=== PATIENT | female | born 1990 | race Caucasian/White ===

== ENCOUNTER → 2017-01-23 | Outpatient (CLI) | payer MEDICAID ==
[~2017-01-23] MED LIST: ADALAT CC60 MG PO; MECLIZINE HCL25 MG PO; NORCO 5-325 TA1 EACH PO; PRENATAL GUMMI1 EACH PO; VALTREX500 MG PO
== END | disposition disaster alternative care site (69) ==
LOC: GRAD 07:30
DX: M54.2 Cervicalgia (principal); M50.222 Other cervical disc displacement at C5-C6 level; M48.02 Spinal stenosis, cervical region; M51.86 Other intervertebral disc disorders, lumbar region; M79.1 Myalgia; M53.86 Other specified dorsopathies, lumbar region; R29.898 Other symptoms and signs involving the musculoskeletal system

== ENCOUNTER → 2017-03-01 | Outpatient (CLI) | payer MEDICAID | END | disposition disaster alternative care site (69) | LOC: GRAD 10:02 | DX: G35 Multiple sclerosis (principal); M79.1 Myalgia; M54.2 Cervicalgia; G93.89 Other specified disorders of brain; R20.2 Paresthesia of skin; R29.898 Other symptoms and signs involving the musculoskeletal system; R42 Dizziness and giddiness | CPT/HCPCS: A9577 ==

== ENCOUNTER 2017-03-08 07:02 | Day surgery (SDC) | payer MEDICAID ==
[~2017-03-08] VITALS: Ht 157.5 cm; Wt 68.5 kg
--- NOTE | ~2017-03-08 | HP ---
PATIENT'S NAME: YAYA BANGURA [facility] AGE: 26 Y [address] ROOM: [place] [address] LOCATION: [facility] [place] ADMIT DATE: 03/08/2017 History & Physical DISCHARGE DATE: 03/09/2017 FAMILY PHYSICIAN: Dana Pink ATTENDING PHYSICIAN: Yanet Obregon DATE OF SERVICE: 03/18/2017 PATIENT IDENTIFICATION: Yaya Bangura is a 26-year-old female. PRESENTING COMPLAINT: Neck and left arm pain. HISTORY OF PRESENT ILLNESS: The patient's symptoms have been ongoing for over 2 years. The patient stated that she was having limited attention span, confusion, short-term memory loss, but the main problem was neck pain and numbness and tingling in the left arm. She also had weakness in her hands, in the left arm, and in the left leg. MRI scan showed herniated disk at C5-C6 level. Surgery was therefore recommended. PAST MEDICAL HISTORY: Significant for major depressive illness including a suicide attempt with excessive alcohol and Zoloft overdose on the record. Other medical problems include suspicion for multiple sclerosis for which MRI brain and spinal taps were performed and were negative. The patient has also lost a significant amount of weight. REVIEW OF SYSTEMS: A 10-point review of systems was carried out. The only abnormal findings are as described in the history of present illness. CURRENT MEDICATIONS: Please see chart. ALLERGIES: PLEASE SEE CHART. SOCIAL HISTORY: The patient is a smoker. PHYSICAL EXAMINATION: GENERAL: The patient is a healthy-looking female who was not in any distress PATIENT'S NAME: YAYA BANGURA [facility] AGE: 26 Y [address] ROOM: [place] [address] LOCATION: [facility] [place] ADMIT DATE: 03/08/2017 History & Physical DISCHARGE DATE: 03/09/2017 FAMILY PHYSICIAN: Dana Pink ATTENDING PHYSICIAN: Yanet Obregon when I saw her. VITAL SIGNS: Stable. NEUROLOGIC EXAMINATION: Speech is intact. Cranial nerves, no deficits seen. Motor Examination: The patient has decreased strength in her left biceps compared to the right biceps. She also has increased reflexes in all her extremities. CARDIOVASCULAR SYSTEM: Heart sounds present. RESPIRATORY SYSTEM: The patient is not short of breath at the bedside. EXTREMITIES: No cyanosis or clubbing. SKIN: No skin rashes or skin masses. REVIEW OF IMAGING STUDIES: The patient had a cervical spine MRI done. The MRI showed a chronic left posterior disk herniation increased from previous surgery. There was migrating disk extrusion which could be a free fragment which extended 5 mm inferior from the disk level and measured 4.5 mm in diameter. There was compression of the left ventral cord surface. ASSESSMENT: A 26-year-old female with 2 year history of neck and left arm pain and weakness. MRI scan shows a left C5-6 disk herniation with increased size compared to 2014. There is a strong correlation between the patient's clinical features and radiological findings. The duration of her symptoms has been long enough for spontaneous resolution to happen and it has not. Accordingly, surgery has been recommended. Surgery recommended is a C5-6 cervical diskectomy and fusion to be performed on March 08, 2017. The patient was seen in the preop clinic right before the surgery, symptoms were unchanged. MD JOVANA ORLANDO/shavonne /[id number] D: [id number] T: 822 HISTORY & PHYSICAL
--- NOTE | ~2017-03-08 | OR ---
PATIENT'S NAME: YAYA BANGURA [facility] AGE: 26 Y [address] [place]: [facility] [place], [place] [address] LOCATION: [facility] ADMIT DATE: 03/08/2017 OR/Procedure Report DISCHARGE DATE: 03/09/2017 FAMILY PHYSICIAN: Dana Pink ATTENDING PHYSICIAN: Yanet Obregon SURGEON: Yanet Obregon MD BAG SORTER: Jeanette Peña. DATE OF PROCEDURE: 03/08/2017 PREOPERATIVE DIAGNOSIS: Cervical spondylosis with radiculopathy. POSTOPERATIVE DIAGNOSIS: Cervical spondylosis with radiculopathy. PROCEDURES PERFORMED: 1. Anterior cervical diskectomy with decompression of neural elements and foraminotomy at C5-6. 2. Structural autograft fusion with iliac crest bone graft from the patient's right hip at C5-C6. 3. Use of Keddie plate by Mk. 4. Use of operative microscope. ANESTHESIA: General. ANESTHESIA PROVIDER: Tomas Fenton MD HISTORY: The patient is a 26-year-old female who presented with left arm pain and weakness and neck pain. MRI scans showed herniated disk at C5-C6. The patient had begun to have left arm weakness and had had symptoms for more than 2 years. Surgery was, therefore, recommended. The above procedure along with the benefits and risks were discussed with the patient. With her consent, she was taken to the operating room for surgery. PROCEDURE IN DETAIL: In the operating room, the patient was placed in the supine position. Anesthesia was induced. She was intubated. Her neck was supported on a gel donut, and a roll was placed under her shoulders, keeping her neck in slight extension. The incision lines were marked out along the anterior border of the right sternomastoid muscle as well as over the right iliac crest. These incision areas were prepped and draped in a sterile fashion. Local anesthesia was infiltrated. The #10 blade was used to open the incision in the neck. The platysma was divided. The anterior border of the sternomastoid became visible. Dissecting along the anterior border of the sternomastoid muscle, the omohyoid muscle also became visible. The space between the omohyoid and sternomastoid muscles was developed with the carotid artery kept to the lateral side and the esophagus and trachea kept to the medial side using [employer] handheld retractors. Dissection progressed until we PATIENT'S NAME: YAYA BANGURA [facility] AGE: 26 Y [address] ROOM: [id number] [place], [place] [address] LOCATION: [facility] ADMIT DATE: 03/08/2017 OR/Procedure Report DISCHARGE DATE: 03/09/2017 FAMILY PHYSICIAN: Dana Pink ATTENDING PHYSICIAN: Yanet Obregon got to the anterior surface of the spine. The longus colli muscles were stripped off the anterior surface of the spine, and self-retaining retractors were placed. Intraoperative x-ray was obtained to verify that we were at the C5-C6 level. Diskectomy was then carried out at the C5-C6 level. The disk was incised with a #15 blade, and pituitary rongeur was used to pull out disk material. The angled curette was used to scrape out more disk, which was again removed with a pituitary rongeur. Microscope was brought in at this point to help with visualizing the depths of the disk space, and the Macarthur distraction pins were also inserted to help open up the disk space. The posterior longitudinal ligament was divided. The Kerrison #2 was used to remove the posterior osteophytes as well as the rest of the posterior longitudinal ligament. I felt that we had a very good decompression. The adjacent edges of the disk space were then prepared for fusion. The endplates were drilled down on the inferior surface of C5 and the superior surface of C6. Attention was then directed to the iliac crest. The incision was opened, and dissection was carried out until the bone was visualized. Self-retaining retractor was placed. The saw was used to saw out a piece of bone that matched the disk space where the diskectomy had been performed. This piece of bone was then trimmed to fit exactly to the disk space and was inserted precisely into the area where the disk had been removed. We had a very snug fit. Appropriate-sized Keddie plate by DePuy was then selected for anterior plating. Two screws were fixed to C5 and 2 screws to C6, and we had a very good fixation. X-ray was obtained to confirm that the graft, plate, and screws were in good position. Irrigation was then used to wash out the debris from the neck, and bone wax was applied to the area where the graft had been harvested from the hip. Both incisions were closed with appropriate suture materials. Sterile dressings were applied. The patient's anesthesia was reversed. She was extubated and taken to the recovery room to complete her recovery. I was present during this entire procedure and performed every aspect of it, assisted at different stages by the operating room nurses. There were no apparent intraoperative complications. Swabs, needles, and instruments were all accounted for at the end of the case. Estimated blood loss was less than 100 mL, and there was no reason for blood transfusion. I expect the patient to benefit from this procedure. In particular, I expect her left arm pain to improve, and hopefully, the weakness will also improve over time. PATIENT'S NAME: YAYA BANGURA [facility] AGE: 26 Y [address] ROOM: [place] [address] LOCATION: [facility] ADMIT DATE: 03/08/2017 OR/Procedure Report DISCHARGE DATE: 03/09/2017 FAMILY PHYSICIAN: Dana Pink ATTENDING PHYSICIAN: Yanet Obregon MD CNO/pipel /[id number] d: 03/11/17 1308 t: 03/18/17 0810, OPERATIVE SUMMARY
[~2017-03-08 07:02] MED LIST changes: -NORCO 5-325 TA1 EACH PO
--- NOTE | 2017-03-08 17:04 | NUR ---
Significant Event:Received from PACU at 1430. 2nd hourly at 1915. Dressing dry and intact to back and rt iliac. Numbness/ tingling and weakness to lt arm and leg- patient had preop. Ambulated to nurses station. No void Follow up:
--- NOTE | 2017-03-09 04:44 | NUR ---
Significant Event: Alert/oriented x3. Significant other spent the night. Plans home today. Ambulated in halls earlier with significant other, gait steady. Saline locked IV in left wrist. Voids independently with significant other. Morphine IVP at 1948. VSS. CSM WNL. Will have x-rays in Radiology this morning, probably around 6 - 7. Has nicotine 21 mg patch on. Pt had asked Dr Obregon about going outside to smoke, reminded her of no smoking policy. Dressing C/D/I at back and right iliac. Numbness/tingl;ing to left jacob leg, had slightly weaker grasp in left hand; has improved. Follow up:
[2017-03-09] MEDS ORDERED: NORCO 5-325 TA1 EACH PO (11:49)
== END 2017-03-09 13:20 | disposition disaster alternative care site (69) ==
LOC: GSDC 07:02 → G3N 07:02 → GPOC 15:00 → GSDC 03-09 13:20
PROC: 0RG1070 Fusion of Cervical Vertebral Joint with Autologous Tissue Substitute, Anterior Approach, Anterior Column, Open Approach (ICD-10-PCS; principal; 2017-03-08)
DX: M47.22 Other spondylosis with radiculopathy, cervical region (principal); M50.122 Cervical disc disorder at C5-C6 level with radiculopathy; G35 Multiple sclerosis; F17.200 Nicotine dependence, unspecified, uncomplicated; Z98.51 Tubal ligation status; Z90.49 Acquired absence of other specified parts of digestive tract; Z98.890 Other specified postprocedural states; Z91.048 Other nonmedicinal substance allergy status; Z88.8 Allergy status to other drugs, medicaments and biological substances
CPT/HCPCS: C1713; J0690; J1100; J1170; J2001; J2270; J2405; J3010; J7120